=== PATIENT | female | born 1955 | race Caucasian/White ===

== ENCOUNTER 2016-07-02 10:09 | Outpatient (CLI) | payer MEDICAID | END 2016-07-02 10:10 | disposition home or self-care (01) | DX: R10.32 Left lower quadrant pain (principal) ==

== ENCOUNTER 2016-07-02 10:29 | Outpatient (CLI) | payer MEDICAID ==
[2016-07-02] MEDS ORDERED: IOPAMIDOL-300 50 ML VIAL PO ONE (12:09)
[2016-07-02] MEDS ORDERED: IOPAMIDOL-300 100 ML VIAL IVP ONE (12:09)
== END 2016-07-02 10:30 | disposition home or self-care (01) ==
DX: R10.32 Left lower quadrant pain (principal)
CPT/HCPCS: 36415; 74177; 80053; 83690; 85025; 87339; Q9967

== ENCOUNTER 2016-07-11 15:35 | Outpatient (CLI) | payer MEDICAID | END 2016-07-11 15:36 | disposition home or self-care (01) | DX: R10.32 Left lower quadrant pain (principal) ==

== ENCOUNTER 2019-07-13 11:47 | Outpatient (CLI) | payer MEDICAID ==
--- NOTE | 2019-07-13 14:58 | XRAY Report ---
Reason: LEFT ELBOW PAIN Procedure Date: 07/13/2019 Accession Number: [id number] / [id number] Procedure: WCP - Elbow 2 View LT CPT Code: Final Report FULL RESULT: EXAM: LEFT ELBOW RADIOGRAPHY EXAM DATE: 07/13/2019 11:47 AM. CLINICAL HISTORY: Left elbow pain. COMPARISON: None. TECHNIQUE: 2 views. FINDINGS: Bones: No fracture is identified. Joints: Degenerative changes including joint space narrowing and marginal osteophytosis, more readily visible on the ulnar side of the articulation. There is a small joint effusion. Soft Tissues: Normal. No soft tissue swelling. IMPRESSION: Advanced degenerative changes and joint effusion. No convincing fracture or dislocation. [facility]
--- NOTE | 2019-07-13 14:59 | XRAY Report ---
Reason: BILATERAL KNEE PAIN Procedure Date: 07/13/2019 Accession Number: [id number] / [id number] Procedure: WCP - Knee 2 View BILAT CPT Code: Final Report FULL RESULT: EXAMS: 1. Right Knee Radiography 2. Left Knee Radiography EXAM DATE:07/13/2019 11:39 AM. CLINICAL HISTORY:Bilateral knee pain. COMPARISON: None. TECHNIQUE: 2 views each. FINDINGS: Right Knee: Bones: Normal. No fractures or bone lesions. Joints: End-stage tricompartmental osteoarthrosis with [id number] contact, subchondral sclerosis and subchondral cyst formation. Small joint effusion. Soft Tissues: Normal. No soft tissue swelling. Left Knee: Bones: Normal. No fractures or bone lesions. Joints: End-stage tricompartmental osteoarthrosis with [id number] contact, subchondral sclerosis and subchondral cyst formation. Small joint effusion. Soft Tissues: Normal. No soft tissue swelling. IMPRESSION: Bilateral end-stage degenerative changes. [facility]
== END 2019-07-13 23:59 | disposition home or self-care (01) ==
LOC: DI.WCP 11:47
PROVIDERS: ATTEND Physician Assistant Medical
DX: M19.022 Primary osteoarthritis, left elbow (principal); M25.422 Effusion, left elbow; M17.0 Bilateral primary osteoarthritis of knee
CPT/HCPCS: 73565

== ENCOUNTER 2019-07-13 12:25 | Outpatient (CLI) | payer MEDICAID ==
[2019-07-13 18:58] LABS: BASOPHILS # (AUTO) 0.1 10^3/uL (0.0-0.1); BASOPHILS % (AUTO) 1.1 %; EOSINOPHILS # (AUTO) 0.1 10^3/uL (0.0-0.7); EOSINOPHILS % (AUTO) 1.5 %; HGB - HEMOGLOBIN 13.7 g/dL (12.0-16.0); LYMPHOCYTES % (AUTO) 18.1 %; MEAN CORPUSCULAR HEMOGLOBIN 28.7 pg (27.0-31.0); MEAN CORPUSCULAR HGB CONC 31.9 g/dL (32.0-36.0); MEAN CORPUSCULAR VOLUME 89.9 fL (81.0-99.0); MEAN PLATELET VOLUME 10.5 fL (7.9-10.8); MONOCYTES # (AUTO) 0.5 10^3/uL (0.0-1.0); MONOCYTES % (AUTO) 8.4 %; NEUTROPHILS # (AUTO) 3.9 10^3/uL (1.5-6.6); NEUTROPHILS % (AUTO) 70.5 %; PLT - PLATELET COUNT 240 10^3/uL (130-450); RED BLOOD COUNT 4.77 10^6/uL (4.20-5.40); RED CELL DISTRIBUTION WIDTH 12.9 % (12.0-15.0); WHITE BLOOD COUNT 5.5 x10^3/uL (4.8-10.8)
[2019-07-13 19:21] LABS: ALBUMIN 3.8 g/dL (3.2-5.5); ALBUMIN/GLOBULIN RATIO 0.9 (1.0-2.2); ALKALINE PHOSPHATASE 86 IU/L (42-121); ALT ALANINE AMINOTRANSFERASE 18 IU/L (10-60); AST ASPARTATE AMINOTRANSFERASE 21 IU/L (10-42); BILIRUBIN,TOTAL 0.5 mg/dL (0.2-1.0); BUN - BLOOD UREA NITROGEN 13 mg/dL (6-20); CALCIUM 9.3 mg/dL (8.5-10.3); CARBON DIOXIDE - CO2 23 mmol/L (21-32); CHLORIDE 110 mmol/L (101-111); CHOL/HDL RATIO 3.1 (<4.4); CHOLESTEROL 181 mg/dL; CREATININE 0.5 mg/dL (0.4-1.0); CRP - C-REACTIVE PROTEIN 1.9 mg/dL (0-1.0); GFR - MDRD 124 (>89); GLUCOSE 92 mg/dL (70-100); HDL CHOLESTEROL 59 mg/dL; LDL CHOLESTEROL,CALCULATED 102 mg/dL; LDL/HDL RATIO 1.7 (<4.4); SODIUM 143 mmol/L (135-145); TOTAL PROTEIN 7.9 g/dL (6.7-8.2); VLDL CHOLESTEROL 20 mg/dL
[2019-07-13 19:56] LABS: RHEUMATOID FACTOR NEGATIVE (Negative)
== END 2019-07-13 23:59 | disposition home or self-care (01) ==
LOC: LAB.WCP 12:25
PROVIDERS: ATTEND Physician Assistant Medical
DX: Z00.00 Encounter for general adult medical examination without abnormal findings (principal); M06.9 Rheumatoid arthritis, unspecified
CPT/HCPCS: 36415; 80053; 80061; 83721; 84443; 85025; 85651; 86140; 86430